=== PATIENT | female | born 1985 | race Asian ===

== ENCOUNTER 2018-05-07 09:23 | Emergency (ER) | payer OTHER ==
[~2018-05-07] VITALS: Ht 165.1 cm; Wt 47.6 kg
[2018-05-07 11:00] VITALS: BP 115/78; TEMP 97.9
== END 2018-05-07 11:00 | disposition home or self-care (01) ==
LOC: ED 09:23
DX: S00.83XA Contusion of other part of head, initial encounter (principal); W22.8XXA Striking against or struck by other objects, initial encounter; Y92.89 Other specified places as the place of occurrence of the external cause
CPT/HCPCS: 99283